=== PATIENT | male | born 1950 ===

== ENCOUNTER → 2022-12-03 08:04 | Outpatient (BNVA) | payer MEDICARE, SELFPAY | PROVIDERS: PCP Internal Medicine; Referring Provider Internal Medicine; Visit Provider Surgery | DX: Z12.11 Encounter for screening for malignant neoplasm of colon (principal); Z86.010 Personal history of colon polyps ==

== ENCOUNTER 2022-12-09 07:00 | Day surgery (SDC) | payer MEDICARE, SELFPAY ==
--- NOTE | 2022-12-09 06:17 | W.ANESPRE ---
General Info Date of Service Date Performed: 12/09/22 Height: 5 ft 10 in Weight: 83.915 kg Body Mass Index (BMI): 26.5 Surgical Procedure: Operation Date: 12/09/22 08:20 Proposed Procedure Side Surgeon p Colonoscopy Jorge Vásquez MD Meds Allergies and Home Medications Allergies Allergy/AdvReac Type Severity Reaction Status Date / Time No Known Drug Allergies Allergy Unknown Verified 12/09/22 07:15 Home Medication Medication Instructions Recorded metoprolol succinate 50 mg 50 mg PO DAILY 06/30/22 tablet,extended release 24 hr ascorbic acid (vitamin C) 500 mg 500 mg PO DAILY 12/03/22 capsule aspirin 81 mg capsule 81 mg PO DAILY 12/03/22 bisacodyl 5 mg tablet,delayed 5 mg PO ONCE colonscopy bowel prep 12/03/22 release (Dulcolax (bisacodyl)) #4 tabs cholecalciferol (vitamin D3) 125 125 mcg PO DAILY 12/03/22 mcg (5,000 unit) capsule polyethylene glycol 3350 17 238 g PO ONCE colonoscopy prep 12/03/22 gram/dose oral powder #238 grams vitamin B complex 1 cap PO DAILY 12/09/22 Current Visit Medications: Current Medications Generic Name Dose Route Start Last Admin Trade Name Freq PRN Reason Stop Dose Admin Ringer's Solution 1,000 mls @ 80 mls/hr 12/09/22 06:00 IV 01/07/23 23:59 INFUSION CINDI IV Miscellaneous Supplies 1 each 12/09/22 06:00 Iv Access IV 01/07/23 23:59 DIRECTED CINDI Sodium Chloride 0 ml 12/09/22 06:00 Normal Saline Flush 10 Ml Syr IV 01/07/23 23:59 PRN PRN Sodium Chloride 0 ml 12/09/22 06:00 Normal Saline 10 Ml Vial IJ 01/07/23 23:59 DIRECTED PRN Sterile Water 0 ml 12/09/22 06:00 Water,Injection,Sterile 10 Ml Vial IJ 01/07/23 23:59 DIRECTED PRN PFSH Active Problems Active Problems: Problem Status Onset Code Hypertension I10 Polyp of colon K63.5 Allergic rhinitis J30.9 Medical History Medical History Allergic rhinitis Amputation finger little finger, right hand Hypertension Polyp of colon Surgical History Surgical History H/O colonoscopy with polypectomy History of lumbar spinal fusion Tobacco Smoking/Tobacco Use Status: Current every day Tobacco Type: cigarettes Alcohol Alcohol Intake: current Alcohol intake frequency: holidays/special occasions only Substance Use Substance use: Never Substance use type: does not use Vital Signs and Lab Results Vital Signs Most Recent Vital Signs in EMR: Temp Pulse Resp BP Pulse Ox 36.4 C L 79 16 127/73 99 12/09/22 07:16 12/09/22 07:16 12/09/22 07:16 12/09/22 07:16 12/09/22 07:16 Lab Results Blood Type / Crossmatch: No Data to Display Complete Blood Count: No Data to Display Complete Metabolic Panel: No Data to Display Liver Function Panel: No Data to Display Coagulation Panel: No Data to Display Cardiac Panel: No Data to Display Arterial Blood Gas: No Data to Display Venous Blood Gas: No Data to Display Pancreas Panel: No Data to Display Thyroid Panel: No Data to Display Infectious Disease: No Data to Display Blood Cultures: No Data to Display Toxicology Panel: No Data to Display Anesthesia Assessment and Plan Anesthesia History Personal History: No History of Anesthesia Complications Family History: Family History Unknown Exercise Tolerance Exercise Tolerance: Metabolic Equivalents>4 Cardiac & Pulmonary Exam Cardiac Exam: Normal S1/S2 Heart Sounds Pulmonary Exam: Clear Bilateral Breath Sounds Implantable Cardiac Device Does patient have a Pacemaker or an ICD?: No Airway Exam Known Difficult Airway: No Mallampati Class: 4 Mouth Opening: Normal (> 3cm) Thyromental Distance: Greater than 3 cm Neck Range of Motion: Limited ROM Neck Circumference: Normal Teeth Condition: Normal Dentition ASA Classification ASA Score: ASA 2 Emergency Case?: No NPO Status NPO Status: NPO Clears >2 hours, Solids >8 hours Anesthesia Plan Resuscitation Status: Full Code Anesthesia Technique: General Anesthesia Airway Planned: Natural Airway Monitors Used: Standard Monitors Preoperative Comments:: 72 yo male for colo. Sig PMHx: HTN (metoprolol), smoker, occ EtOH.
[2022-12-09 07:16] VITALS: BP 127/73; PULSE 79; RESP 16; TEMP 36.4; O2SAT 99
[2022-12-09] MEDS: Lactated Ringers 1,000 ML 80 ML IV (07:45)
[2022-12-09 08:06] VITALS: BMI 26.5
--- NOTE | 2022-12-09 08:13 | W.COLOREPORT ---
Date of service: 12/09/22 Time of Service: 08:13 Colonoscopy Report Procedure Description: Procedures performed: 1. Colonoscopy with snare polypectomy x6 Preoperative diagnosis: Surveillance colonoscopy, colon polyps Postoperative diagnosis: Colon polyps, grade 2 internal hemorrhoids Surgeon: Catarina Vásquez Anesthesia: Rafiq Indication for procedure: The patient is a 72-year-old man with a personal history of adenomatous polyps. He does not think there is any family history of colon cancer or colon polyps. He has had many colonoscopies in the past. Findings: The terminal ileum was normal. In the transverse colon, there were three 3-5 mm sessile polyps in a cluster in all 3 were removed with a hot snare. In the proximal sigmoid colon there was a 5-7 mm sessile polyp which was removed with hot snare technique. Further along in the sigmoid colon were 2 more 3-5 mm sessile polyps removed with hot snare. Grade 2 internal hemorrhoids noted. Surveillance/follow-up recommendations: 3 years Complications: None Blood loss: Minimal Specimens:?? YES Quality of Prep:?? Good Procedure in detail: Written consent was obtained from the patient who was in agreement with the risks, benefits and indications of the procedure.? We went to the endoscopy suite and laid the patient in left lateral decubitus position.? Anesthesia was administered which was tolerated well.? A timeout was performed and when we are all in agreement we began the procedure. Digital rectal exam and visual examination was performed and within normal limits.? A well?lubricated colonoscope was advanced without difficulty all the way to the cecum identified by the ileocecal valve, and triangular folds and appendiceal orifice.? The terminal ileum was briefly intubated and look normal. The scope was then slowly withdrawn.?? Retroflexion was performed in the rectum.? The findings/interventions are noted above. The scope was then removed and the patient tolerated the procedure well and was then taken back to the PACU in hemodynamically stable condition.
--- NOTE | 2022-12-09 08:14 | W.PM.DSUDISC ---
Date of service: 12/09/22 Time of Service: 08:14 Discharge Plan Disposition Patient Disposition: Home Condition: Good Discharge Details Attending Provider: Jorge Vásquez Primary Care Provider: Jana Scott Home Meds and New Rx's Prescriptions: No Action cholecalciferol (vitamin D3) 125 mcg (5,000 unit) capsule 125 mcg PO DAILY ascorbic acid (vitamin C) 500 mg capsule 500 mg PO DAILY aspirin 81 mg capsule 81 mg PO DAILY polyethylene glycol 3350 17 gram/dose powder 238 g PO ONCE Qty: 238 0RF Rx Instructions: take per colonoscopy instructions bisacodyl [Dulcolax (bisacodyl)] 5 mg tablet,delayed release (DR/EC) 5 mg PO ONCE Qty: 4 0RF Rx Instructions: take per colonoscopy instructions metoprolol succinate 50 mg tablet extended release 24 hr 50 mg PO DAILY vitamin B complex Capsule 1 cap PO DAILY Discharge Instructions Additional Instructions: FINDINGS: Multiple polyps were found and removed today. They do get sent to pathology to get reviewed under microscope. There is nothing you need to worry about but you should repeat another colonoscopy in 3 years. Stand Alone Forms: Colonoscopy Post Instructions Activity:: Activity as Tolerated Diet:: As Tolerated Discharge Orders Discharge Orders: Discharge Order (Routine); Ordered 12/09/22 Ordered By: Jorge Vásquez DS: Diagnosis Discharge Diagnosis (1) Polyp of colon: Status: Acute Asessment and Plan: FINDINGS: Multiple polyps were found and removed today. They do get sent to pathology to get reviewed under microscope. There is nothing you need to worry about but you should repeat another colonoscopy in 3 years.
--- NOTE | 2022-12-09 08:33 | BOWEL_PTH ---
PATIENT: Morris Daniel LOC: [facility] U#:[id number] AGE/SX: 72/M ROOM: RE12/09/[address]: Jorge Vásquez : 1950 BED: DIS: 12/09/2022 SPEC #: [id number] RECD: 12/09/22 12:49 STATUS: MAIKEL RE #: [id number] YOLIS: 12/09/22 08:[address]: Jorge Vásquez DEPT: Surgical Specimen RECD BY: Suha Brown ENTERED: 12/09/22 12:50 SP TYPE: Bowel OTHR DR: Jana Scott Tissues: 1 - BIOPSY BOWEL 2 - BIOPSY BOWEL 3 - BIOPSY BOWEL Procedures: GROSS AND MICRO LEVEL 4 Comments: [id number]
[2022-12-09 09:05] VITALS: BP 122/77; PULSE 73; RESP 16; TEMP 36.4; O2SAT 96
--- NOTE | 2022-12-09 09:08 | W.ANESPOSTOP ---
Postoperative Evaluation Date, Time and Location Date Performed: 12/09/22 Time Performed: 09:08 Patient Location: Day Surgery Unit Vital Signs Most Recent Imported Vital Signs: Most Recent Vital Signs Temp Pulse Resp BP Pulse Ox 36.4 C L 73 16 122/77 96 12/09/22 09:05 12/09/22 09:05 12/09/22 09:05 12/09/22 09:05 12/09/22 09:05 Pain Score Most Recent Pain Score: Most Recent Pain Score Pain Level 0 12/09/22 09:05 Assessment Mental Status: Awake (Alert & Oriented to Patient Baseline) Airway and Respiratory Function: Patent airway with normal (patient baseline) respiratory exam Cardiovascular Function: Hemodynamically Stable Hydration Status: Adequately Hydrated Nausea & Vomiting: No Nausea or Vomiting Pain: Pt. Denies Any Pain Peripheral Nerve Block: Patient did not receive a nerve block
[2022-12-09 09:32] VITALS: BP 140/78; PULSE 74; RESP 16; TEMP 36.4; O2SAT 96
--- NOTE | 2022-12-09 09:45 | W.ANESPOSTOP ---
Postoperative Evaluation Date, Time and Location Date Performed: 12/09/22 Time Performed: 09:45 Patient Location: Day Surgery Unit Vital Signs Most Recent Imported Vital Signs: Most Recent Vital Signs Temp Pulse Resp BP Pulse Ox 36.4 C L 74 16 140/78 96 12/09/22 09:32 12/09/22 09:32 12/09/22 09:32 12/09/22 09:32 12/09/22 09:32 Most Recent Vital Signs Temp Pulse Resp BP Pulse Ox 36.4 C L 73 16 122/77 96 12/09/22 09:05 12/09/22 09:05 12/09/22 09:05 12/09/22 09:05 12/09/22 09:05 Pain Score Most Recent Pain Score: Most Recent Pain Score Pain Level 0 12/09/22 09:32 Assessment Mental Status: Awake (Alert & Oriented to Patient Baseline) Airway and Respiratory Function: Patent airway with normal (patient baseline) respiratory exam Cardiovascular Function: Hemodynamically Stable Hydration Status: Adequately Hydrated Nausea & Vomiting: No Nausea or Vomiting Pain: Pt. Denies Any Pain Peripheral Nerve Block: Patient did not receive a nerve block
== END 2022-12-09 09:55 | disposition home or self-care (01) ==
PROVIDERS: PCP Internal Medicine; Visit Provider Student in an Organized Health Care Education/Training Program
PROC: 0DJD8ZZ Inspection of Lower Intestinal Tract, Via Natural or Artificial Opening Endoscopic (ICD-10-PCS; CPT 45378; principal; 2022-12-09 08:15)
DX: Z12.11 Encounter for screening for malignant neoplasm of colon (principal); D12.5 Benign neoplasm of sigmoid colon; Z86.010 Personal history of colon polyps; K64.1 Second degree hemorrhoids; D12.3 Benign neoplasm of transverse colon
CPT/HCPCS: 45385; 88305; J2001

== ENCOUNTER → 2023-07-01 11:36 | Outpatient (BNVA) | payer MEDICARE, SELFPAY | PROVIDERS: PCP Internal Medicine; Referring Provider Internal Medicine; Visit Provider Podiatrist | DX: Q82.8 Other specified congenital malformations of skin (principal); L84 Corns and callosities; M79.672 Pain in left foot; M79.671 Pain in right foot; G62.9 Polyneuropathy, unspecified | CPT/HCPCS: 11056; 17110; 99213 ==